=== PATIENT | male | born 1970 | race Caucasian/White ===

== ENCOUNTER 2017-11-23 21:53 | Emergency (ER) | payer OTHER ==
[~2017-11-23] VITALS: Ht 185.4 cm; Wt 89.8 kg
--- NOTE | 2017-11-23 22:13 | NUR ---
Pt c/o CP, started about 1 hour [employer], described as a "weight" on his chest, started with "sharp" pain in right shoulder followed by left shoulder; also some slight nausea. Pt denies SOB, dizziness, no other complaints, no distress noted.
--- NOTE | 2017-11-23 23:38 | NUR ---
Removed IV, 18g R AC, intact, site okay, bandaged. Gave pt d/c instructions, verbalized understanding.
== END 2017-11-23 23:42 | disposition home or self-care (01) ==
LOC: ER 21:54
DX: R07.89 Other chest pain (principal)
CPT/HCPCS: 36415; 70030-TC; 71045; 93005; A4663